=== PATIENT | female | born 1975 | race Caucasian/White ===

== ENCOUNTER 2023-08-31 09:52 | Emergency (ER) | payer OTHER ==
[~2023-08-31] VITALS: Ht 167.6 cm; Wt 55.2 kg
[2023-08-31 11:07] VITALS: BP 115/68
[2023-09-01 07:40] LABS: HIV 1,2 COMBO ANTIGEN/ANTIBODY Negative (Negative)
[2023-09-01 08:07] LABS: HEPATITIS B SURFACE ANTIBODY 26.82 IU/L (())
[2023-09-01 09:46] LABS: HEPATITIS C AB CIA INTERP Negative (Negative)
== END 2023-08-31 11:15 | disposition home or self-care (01) ==
LOC: ED 09:52
PROVIDERS: Emergency Medicine
DX: S61.231A Puncture wound without foreign body of left index finger without damage to nail, initial encounter (principal); W46.0XXA Contact with hypodermic needle, initial encounter; Y92.239 Unspecified place in hospital as the place of occurrence of the external cause; Y93.89 Activity, other specified; Y99.0 Civilian activity done for income or pay
CPT/HCPCS: 36415; 84460; 86706; 86803; 99282